=== PATIENT | female | born 1995 | race Caucasian/White ===

== ENCOUNTER 2024-09-01 07:06 | Inpatient (IN) ==
--- NOTE | 2024-08-18 13:31 | Anesthesiology Consultation ---
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 No known infectious disease contacts in past 10 days or current infectious disease symptoms. No recent travel outside the country. History Surgery Operation Date: 09/01/24 09:10 Proposed Procedures p Section (Delivery of Baby Through Abdominal Incision) - Radha Stearns MD Height/Weight Height: 5 ft 3 in Weight: 83.915 kg Allergies Allergy/AdvReac Type Severity Reaction Status Date / Time No Known Allergies Allergy Verified 08/15/24 08:28 Medications Home Medications Medication Instructions Recorded Confirmed Last Taken [id number] 1 tab PO DAILY 03/06/24 08/18/24 Unknown [ Plus] Past Medical History Medical History Endometriosis History of COVID-19 History of. Prior to 2023- no current issues Past Family History Family History Denies family history of Ovarian cancer Breast cancer Colorectal cancer Past Surgical History Surgical History H/O ovarian cystectomy Social History Smoking Status: Never smoker Do You Dip or Chew Tobacco: No Hx Alcohol Use: No Hx Substance Use: No substance use type: does not use
[2024-09-01 08:06] LABS: Basophils # (auto) 0.06 K/uL (0.00-0.20); Basophils % (auto) 0.5 %; Eosinophils # (auto) 0.14 K/uL (0.00-0.50); Eosinophils % (auto) 1.2 %; Hematocrit (blood only) 39.4 % (37.0-47.0); Hemoglobin 13.5 g/dl (12.0-16.0); Immature Granulocytes # (auto) 0.13 K/uL (0.01-0.20); Immature Granulocytes % (auto) 1.1 %; Lymphocytes # (auto) 2.73 K/uL (1.20-3.40); Lymphocytes % (auto) 22.4 %; Mean Corpuscular Hemoglobin 30.2 pg (25.0-34.0); Mean Corpuscular Hgb Conc 34.3 g/dL (32.0-36.0); Mean Corpuscular Volume 88.1 fL (80.0-100.0); Mean Platelet Volume 10.8 fL (9.4-12.4); Monocytes # (auto) 0.58 K/uL (0.11-0.59); Monocytes % (auto) 4.8 %; Neutrophils # (auto) 8.53 K/uL (1.40-6.50); Platelet Count 277 K/uL (130-400); RDW Coefficient of Variation 14.4 % (11.5-14.5); RDW Standard Deviation 45.7 fL (36.4-46.3); Red Blood Count 4.47 M/uL (4.20-5.40); White Blood Count 12.17 K/ul (4.8-10.8)
[2024-09-01] MEDS ORDERED: LACTATED RINGER'S 1,000 ML IV SCH ×2 (08:30→12:46)
[2024-09-01] MEDS ORDERED: ONDANSETRON INJ 2 MG/ML 2 ML VIAL ONE (08:34)
[2024-09-01] MEDS ORDERED: DEXAMETHASONE SOD INJ 4 MG/ML VIAL ONE (08:34)
[2024-09-01] MEDS: LACTATED RINGER'S 1,000 ML IV SCH (08:34)
[2024-09-01] MEDS: ACETAMINOPHEN 500 MG TAB PO SCH (08:35)
[2024-09-01] MEDS ORDERED: OXYTOCIN 10 UNITS/ML VIAL ONE (08:35)
[2024-09-01] MEDS ORDERED: MoRPHine SULFATE PF 1 MG/ML 10 ML AMP/VIAL ONE (08:36)
[2024-09-01] MEDS ORDERED: fentaNYL citrate PF 100 MCG/2 ML VIAL ONE (08:36)
[2024-09-01] MEDS ORDERED: PHENYLEPHRINE HCL 25 MG/250 ML NSS IV ONE (08:59)
--- NOTE | 2024-09-01 09:15 | History & Physical Bridge Note ---
Date of Service September 01, 2024 History & Physical Bridge Note I have examined the patient, reviewed the History & Physical and in the interval since the performance of the History & Physical I have noted the following changes of clinical significance: no changes noted
[2024-09-01] MEDS: CITRIC ACID/SODIUM CITRATE 15 ML UDC PO SCH (10:28)
[2024-09-01] MEDS: ceFAZolin 2000MG 2,000 MG/15 ML SYR IV SCH (10:29)
[2024-09-01] MEDS ORDERED: ePHEDrine sulfate 50 MG/5 ML SYR ONE (10:31)
[2024-09-01] MEDS ORDERED: diphenhydrAMINE 50 MG/ML VIAL IV PRN (10:49)
[2024-09-01] MEDS ORDERED: oxyCODONE HCL IR 5 MG TAB (IMMEDIATE RELEASE) PO PRN (10:49)
[2024-09-01] MEDS ORDERED: PROMETHAZINE 6.25 MG/50.25 ML BAG IV PRN (10:49)
[2024-09-01] MEDS ORDERED: ONDANSETRON INJ 2 MG/ML 2 ML VIAL IV PRN ×2 (10:49→12:46)
[2024-09-01] MEDS ORDERED: NALOXONE HCL 0.08 MG in SYRINGE 1.8 ML IV PRN (10:49)
[2024-09-01] MEDS ORDERED: NALBUPHINE HCL INJ 10 MG/ML AMP IV PRN (10:49)
[2024-09-01] MEDS ORDERED: NALOXONE HCL 1 MG in SODIUM CHLORIDE 0.9% 1,000 ML IV PRN (10:49)
[2024-09-01] MEDS ORDERED: ePHEDrine sulfate 50 MG/ML AMP IV PRN (10:49)
[2024-09-01] MEDS ORDERED: HYDROmorphone INJ 0.5 MG/0.5 ML SYR IV PRN (10:49)
[2024-09-01] MEDS ORDERED: NALOXONE HCL 0.4 MG/1 ML VIAL/CARP IV PRN (10:49)
[2024-09-01] MEDS ORDERED: NO NARCOTICS OR SEDATIVES SCH (11:00)
[2024-09-01] MEDS ORDERED: DC INTRASPINAL MORPHINE SCH (11:00)
--- NOTE | 2024-09-01 11:26 | Operative Report ---
PG Post Operative Report Pre & Post Diagnosis Operation Date: 09/01/24 09:10 Pre-Op Diagnosis: Breech Presentation Post-Op Diagnosis: Breech Presentation I identified the patient and participated in the time-out.: Yes Procedure Operation Date: 09/01/24 09:10 Actual Procedures Primary Low Transverse Section Surgeon Radha Stearns MD Brush Sander MARK Piña Estimated Blood Loss 535 (QBL) Findings Consistent with Post-Op Diagnosis Specimens Placenta, cord blood Anesthesia Type Spinal Complications none Disposition Accompanied Patient To Recovery: Yes Disposition: L&D Description of Procedure The patient was placed operating table in the supine position with a leftward tilt. She was prepped and draped in standard sterile fashion. The anesthetic was tested and found to be adequate. A time-out was held, identifying correct patient, procedure, positioning and preoperative antibiotics. There were no concerns. A Pfannenstiel skin incision was made with a knife and taken down to the underlying layer of fascia. The fascia was incised in the midline with the knife and taken out laterally with scissors. The superior edge of the fascial incision was grasped, elevated and dissected off the underlying rectus both superiorly and inferiorly. The muscles were bluntly in the midline. The peritoneum was entered bluntly. The incision was then stretched. The bladder retractor was placed. The vesicouterine peritoneum was identified, entered with scissors and taken out laterally with scissors. The bladder flap was created digitally. A hysterotomy incision was created transversely in the lower uterine segment, final entry being accomplished in a blunt manner with the pierce and shave press operator's fingers. Clear amniotic fluid was encountered. The pierce and shave press operator's hand was used to elevate the feet to the hysterotomy. The baby was delivered to the shoulders, the arms were swept in physiologic position, and the head was delivered maintaining flexion. The cord was clamped and cut and the was then handed off to the awaiting cartridge maker. Cord blood was obtained. The placenta was Manually extracted. The uterus was exteriorized and cleared of all clot and debris with moistened laparotomy sponges. The hysterotomy incision was repaired in two layers, the first in a running locked layer, the second in an imbricating layer. The ovaries and tubes were seen to be normal bilaterally. The uterus was gently replaced in the abdomen, and the gutters were cleared of clot and debris. A final inspection of the hysterotomy revealed good hemostasis. The rectus muscles were allowed to reapproximate naturally. The fascia was then reapproximated with 1 Vicryl in a running nonlocked manner. The fascia was examined and found to be free of defect following closure. The subcutaneous tissue was copiously irrigated and reapproximated with 0-chromic, then the skin edges were closed with 4-0 monocryl in a subcuticular fashion. A dermabond dressing was applied. The sosa was found to be draining clear yellow urine at completion of the procedure. I attest to the content of the Intraoperative Record and any orders documented therein. Any exceptions are noted below. I attest to the content of the Intraoperative Record and any orders documented therein. Any exceptions are noted below. OB Procedure Charges 31009
[2024-09-01] MEDS: OXYTOCIN 20 UNITS/LR 1,002 ML IV SCH (11:30)
--- NOTE | 2024-09-01 11:33 | Anesthesiology Progress Note ---
Date of Service September 01, 2024 Anesthesia Post Procedure Vital Signs Vital Signs: Temp Pulse Resp BP Pulse Ox 09/01/24 11:31 78 94 09/01/24 11:30 95 09/01/24 11:30 78 09/01/24 11:30 73 117/53 L 09/01/24 07:19 36.5 C 86 18 117/72 09/01/24 07:15 36.5 C 86 18 117/72 Transfer of Care Handoff Completed per policy Notes Mental Status: alert / awake / arousable and participated in evaluation Patient Amnestic to Procedure: Yes Nausea / Vomiting: adequately controlled Pain: adequately controlled Airway Patency, RR, SpO2: stable & adequate BP & HR: stable & adequate Hydration State: stable & adequate Neuraxial Anesthesia: was administered and sensory block is resolving Anesthetic Complications: no major complications apparent and Pt Satisfied with anesthetic care
[2024-09-01] MEDS ORDERED: diphenhydrAMINE Capsule 25 MG CAP PO PRN (12:46)
[2024-09-01] MEDS ORDERED: MAGNESIUM HYDROXIDE SUSP 30 ML UDC PO PRN (12:46)
[2024-09-01] MEDS ORDERED: PROMETHAZINE 12.5 MG/50.5 ML BAG IV PRN (12:46)
[2024-09-01] MEDS ORDERED: CALCIUM CARBONATE 500 MG CHEWABLE TAB PO PRN (12:46)
[2024-09-01] MEDS ORDERED: SODIUM CHLORIDE 0.9% 1,000 ML IV SCH (12:46)
[2024-09-01] MEDS ORDERED: BENZOCAINE 20% SPRY 85 APPLN/85 GM CAN EXT PRN (12:46)
[2024-09-01] MEDS ORDERED: SENNA 8.6 MG TAB PO PRN (12:46)
[2024-09-01] MEDS ORDERED: HYDROCORTISONE ACETATE 25 MG SUPP PR PRN (12:46)
[2024-09-01] MEDS: DIPHTHER/TETAN/PERTUS Vaccine (Tdap, Adol/Adult) 0.5mL IM ONE (13:14)
[2024-09-01] MEDS: MoRPHine SULFATE PF 1 MG/ML 10 ML AMP/VIAL INT SPINAL ONE (13:16)
[2024-09-01] MEDS: SIMETHICONE 80 MG CHEW PO SCH (13:22)
[2024-09-01] MEDS: KETOROLAC 30 MG/ML VIAL IV SCH (13:22)
[2024-09-01] MEDS: ACETAMINOPHEN 325 MG TAB PO SCH (19:02)
[2024-09-01] MEDS: DOCUSATE SODIUM 100 MG CAP PO SCH (20:43)
[2024-09-02] MEDS ORDERED: HYDROmorphone INJ 0.5 MG/0.5 ML SYR IV PRN (04:50)
[2024-09-02] MEDS ORDERED: oxyCODONE HCL IR 5 MG TAB (IMMEDIATE RELEASE) PO PRN (04:50)
[2024-09-02] MEDS ORDERED: diphenhydrAMINE 50 MG/ML VIAL IV PRN (04:50)
--- NOTE | 2024-09-02 06:37 | Obstetrical Progress Note ---
Date of Service September 02, 2024 Assessment & Plan (1) state: (2) S/P : Plan Renetta is a 29yo day 1 s/p uncomplicated repeat . Feels well today, VSS Continue care Encourage ambulation and Pain control with ibuprofen as needed Hgb: 11.2 Home in 1-2 days Follow up with Dr. Stearns in 6wks Admission and Anticipated Discharge Date Admission Date: September 01, 2024 Supervising Physician Co-Signing Physician Notes Resident Physician Supervision Note: I was present with [Name of resident] during the history and exam. I discussed the case with the resident and agree with the findings and plan as documented in the note. Any exceptions or clarifications are listed here: [None] Documented By: Javi Dougherty MD, FACOG Subjective Renetta is a 29yo day 1 s/p uncomplicated repeat . Feeling: "not bad" Ambulation: yes Void: urinating, no BM yet Gas: yes Lochia: steady Diet: tolerating Feeding: breast and bottle, no concerns at this time Sx: denies other than some soreness Physical Exam Physical Exam: Constitutional: WD/WN, vitals as above GI/abd: +BS, abdomen soft, fundus moderately firm palpable 1fw+ umbilicus - low-transverse incision scar: healing well- no erythema, swelling, discharge, or bleeding; steristrips remaining Ext: no LE edema, calves nontender to palpation, wiggles toes Psychiatric: A&Ox3, euthymic Results & Data Vital Signs (Past 12 Hours) Vital Signs Temp Pulse Resp BP Pulse Ox O2 Del Method 09/02/24 04:53 18 96 09/02/24 03:30 16 96 09/02/24 03:30 36.7 C 87 16 105/67 96 Room Air 09/02/24 02:41 16 99 09/02/24 01:00 18 99 09/02/24 00:00 18 97 09/02/24 00:00 36.7 C 78 18 115/73 97 Room Air 09/01/24 22:10 18 96 09/01/24 21:10 16 100 09/01/24 20:00 18 99 09/01/24 19:00 16 100 09/01/24 19:00 36.8 C 77 16 122/79 100 Room Air Resident Activity Tracking Resident Involvement: Resident Care Provided Care Provided: OB Delivery
[2024-09-02 06:46] LABS: Basophils # (auto) 0.04 K/uL (0.00-0.20); Basophils % (auto) 0.3 %; Eosinophils # (auto) 0.09 K/uL (0.00-0.50); Eosinophils % (auto) 0.6 %; Hematocrit (blood only) 32.7 % (37.0-47.0); Hemoglobin 11.2 g/dl (12.0-16.0); Immature Granulocytes # (auto) 0.13 K/uL (0.01-0.20); Immature Granulocytes % (auto) 0.8 %; Lymphocytes # (auto) 2.73 K/uL (1.20-3.40); Lymphocytes % (auto) 17.3 %; Mean Corpuscular Hemoglobin 30.4 pg (25.0-34.0); Mean Corpuscular Hgb Conc 34.3 g/dL (32.0-36.0); Mean Corpuscular Volume 88.9 fL (80.0-100.0); Mean Platelet Volume 10.8 fL (9.4-12.4); Monocytes # (auto) 0.95 K/uL (0.11-0.59); Neutrophils # (auto) 11.87 K/uL (1.40-6.50); Platelet Count 238 K/uL (130-400); RDW Coefficient of Variation 14.3 % (11.5-14.5); Red Blood Count 3.68 M/uL (4.20-5.40); White Blood Count 15.81 K/ul (4.8-10.8)
[2024-09-02] MEDS: FERROUS SULFATE 325 MG TAB PO SCH (07:28)
[2024-09-02] MEDS: PRENATAL VITAMIN 1 TAB PO SCH (07:28)
[2024-09-02] MEDS ORDERED: PRENATAL MULTIVIT MIN FE FA PO SCH (09:00)
[2024-09-02] MEDS ORDERED: KETOROLAC 30 MG/ML VIAL IV PRN (11:16)
[2024-09-02 11:37] VITALS: RESP 16
[2024-09-02] MEDS: IBUPROFEN 600 MG TAB PO SCH (12:42)
[2024-09-02 20:06] VITALS: O2SAT 99
[2024-09-02] MEDS: bisacodyL 5 MG TABEC PO SCH (20:07)
[2024-09-03 06:24] LABS: Hematocrit (blood only) 33.2 % (37.0-47.0); Hemoglobin 11.3 g/dl (12.0-16.0)
--- NOTE | 2024-09-03 06:50 | Obstetrical Progress Note ---
Date of Service September 03, 2024 Assessment & Plan (1) state: (2) S/P : Plan Renetta is a 29yo day 2 s/p uncomplicated repeat . Feels well today, VSS Continue care Encourage ambulation and Pain control with ibuprofen as needed, sending percocet script for home Hgb: 11.2 -> 11.3 Home today Follow up with Dr. Stearns in 6wks Admission and Anticipated Discharge Date Admission Date: September 01, 2024 Supervising Physician Co-Signing Physician Notes Resident Physician Supervision Note: I interviewed and examined the patient. Discussed with Dr. Bennett and agree with findings and plan as documented in the note. Any exceptions or clarifications are listed here: [None] Documented By: Karine Douglas MD, FACOG Subjective Renetta is a 29yo day 2 s/p uncomplicated repeat . Feeling: good Ambulation: yes Void: urinating, had BM Gas: yes Lochia: small Diet: tolerating Feeding: breast and bottle, no concerns at this time Sx: denies other than some soreness Physical Exam Physical Exam: Constitutional: WD/WN, vitals as above GI/abd: +BS, abdomen soft, fundus moderately firm palpable at lvl of umbilicus - low-transverse incision scar: healing well- no erythema, swelling, discharge, or bleeding; steristrips remaining Ext: no LE edema, calves nontender to palpation, wiggles toes Psychiatric: A&Ox3, euthymic Results & Data Vital Signs (Past 12 Hours) Vital Signs Temp Pulse Resp BP Pulse Ox O2 Del Method 09/03/24 00:21 36.7 C 86 16 114/76 99 Room Air 09/02/24 20:05 36.7 C 91 H 16 134/85 99 Room Air Resident Activity Tracking Resident Involvement: Resident Care Provided Care Provided: OB Delivery
[2024-09-03 07:48] VITALS: BP 113/76; PULSE 82; TEMP 98.2
[2024-09-03] MEDS ORDERED: bisacodyL 10 MG SUPP PR PRN (11:16)
[2024-09-03] MEDS ORDERED: IBUPROFEN 600 MG TAB PO PRN (12:00)
[2024-09-03] MEDS ORDERED: ACETAMINOPHEN 325 MG TAB PO PRN (19:00)
--- NOTE | 2024-09-05 07:12 | Discharge Summary ---
Date of Service September 05, 2024 Discharge Data Consultations 09/01/24 07:19 Consult Anesthesiology Stat Procedures Performed Operation Date: 09/01/24 09:10 Actual Procedures p Section delivery of live male child at 1100 - Radha Stearns MD Hospital Course (1) state: (2) S/P : Plan Renetta is a 29yo day 2 s/p uncomplicated repeat . Feels well today, VSS Continue care Encourage ambulation and Pain control with ibuprofen as needed, sending percocet script for home Hgb: 11.2 -> 11.3 Home today Follow up with Dr. Stearns in 6wks Supervising Physician Co-Signing Physician Notes Resident Physician Supervision Note: I interviewed and examined the patient. Discussed with Dr. Bennett and agree with findings and plan as documented in the note. Any exceptions or clarifications are listed here: [None] Documented By: Karine Douglas MD, FACOG Coding Level of Care Code None Diagnoses state Z39.2 S/P Z98.891
== END 2024-09-03 11:18 | disposition home or self-care (01) | DRG 788 ==
LOC: 4S1 07:06 → EDSTATUS 09:10 → 4E2 13:50
DX: Z37.0 Single live birth; O32.1XX0 Maternal care for breech presentation, not applicable or unspecified; Z3A.39 39 weeks gestation of pregnancy